=== PATIENT | male | born 1985 | race Caucasian/White ===

== ENCOUNTER 2024-03-22 12:28 | Emergency (ER) | payer MEDICAID ==
[~2024-03-22] VITALS: Ht 185.4 cm; Wt 149.7 kg
[2024-03-22 12:31] VITALS: BP 171/90; PULSE 77; RESP 16; O2SAT 98
[2024-03-22 13:57] LABS: STREP A SCREEN NEGATIVE (Neg)
[2024-03-22 14:33] VITALS: TEMP 98.2
== END 2024-03-22 14:37 | disposition home or self-care (01) ==
LOC: ER 12:29
DX: J02.9 Acute pharyngitis, unspecified (principal); Z20.822 Contact with and (suspected) exposure to COVID-19; Z88.0 Allergy status to penicillin
CPT/HCPCS: 36415; 87081; 87811; 87880; 99283